=== PATIENT | female | born 1995 | race African-American/Black ===

== ENCOUNTER 2019-06-14 10:13 | Inpatient (IN) | payer OTHER ==
[2019-06-14 10:50] VITALS: BMI 18.7
--- NOTE | 2019-06-14 12:57 | HP ---
COWS - Scale Resting Pulse: 0= ME 80 or Below Sweatin= Chills/Flushing Restless Observation: 3= Extraneous Movement Pupil Size: 0= Normal to Room Light Bone or Joint Aches: 2= Severe Diffuse Aches Runny Nose/ Eye Tearin= None GI Upset > 30mins: 0= None Tremor Observation: 2= Slight Tremor Visible Yawning Observation: 2= >3x During Session Anxiety or Irritability: 1=Feels Anxious/Irritable Goose Flesh Skin: 3=Piloerection COWS Score: 14 CIWA Score Nausea/Vomitin-No Nausea/No Vomiting Muscle Tremors: 5 Anxiety: 1-Mildly Anxious Agitation: 3 Paroxysmal Sweats: No Perspiration Orientation: 3-Disoriented Date>2 days Tacttile Disturbances: 1-Very Mild Itch/Numbness Auditory Disturbances: 0-None Visual Disturbances: 0-None Headache: 0-None Present CIWA-Ar Total Score: 13 - Admission Criteria [facility]ASAS Guidelines: Admission for Medically Managed Detox: Requires at least one of the followin. CIWA greater than 12 2. Seizures within the past 24 hours 3. Delirium tremens within the past 24 hours 4. Hallucinations within the past 24 hours 5. Acute intervention needed for co occurring medical disorder 6. Acute intervention needed for co occurring psychiatric disorder 7. Severe withdrawal that cannot be handled at a lower level of care (continued vomiting, continued diarrhea, abnormal vital signs) requiring intravenous medication and/or fluids 8. Admission [facility] Chief Complaint: detox for heroin, cocaine Allergies/Adverse Reactions: Allergies Allergy/AdvReac Type Severity Reaction Status Date / Time No Known Allergies Allergy Verified 06/14/19 10:33 History of Present Illness: 24F w/ no significant pmh presenting for detox-rehab for heroin, cocaine. Heroin (IV) 10-20bags daily, x3ys. Last usage was this morning. Injects Fentanyl. Takes 2-3bags cocaine daily. Has blacked out 2-3x. Denies ODs. Takes 14pills xanax in 1week. Last usage was this morning. Denies EtOH. Smokes 1/2ppd. Has detoxed at [facility] in the past. Tried to get admitted to [facility] but did not get accepted. Expresses disinterest in outpatient methadone program. Lives with daughter's father. Exam Limitations: Intoxication - Ebola screening Have you traveled outside of the country in the last 21 days: No Have you had contact with anyone from an Ebola affected area: No Do you have a fever: No - Review of Systems Constitutional: Chills Respiratory: denies: Cough Cardiac: denies: Chest Pain, Irregular Heart Rate GI: denies: Nausea, Vomiting Musculoskeletal: reports: Back Pain Neuro: reports: Tremors. denies: Headache Patient History - Patient Surgical History Hx Section: Yes (x2) - Smoking Cessation Smoking history: Current every day smoker Have you smoked in the past 12 months: Yes Aproximately how many cigarettes per day: 10 Initiated information on smoking cessation: No - Substances abused Heroin Substance route: Injection Frequency: Daily Amount used: 2 bundle Age of first use: 15 Date of last use: 06/14/19 Alprazolam (Xanax) Substance route: Oral Frequency: Daily Amount used: 2 stcks Age of first use: 15 Date of last use: 06/14/19 Marijuana/Hashish Substance route: Smoking Frequency: Daily Amount used: 2 blunts Age of first use: 15 Date of last use: 06/14/19 Family Disease History - Family Disease History Family History: Unable to Obtain Admission Physical Exam S - Vital Signs Vital Signs: Vital Signs - 24 hr 06/14/19 10:32 Temperature 98.4 F Pulse Rate 80 Respiratory 18 Rate Blood Pressure 130/88 - Physical General Appearance: Yes: No Apparent Distress, Thin, Tremorous HEENTM: No: Scleral Ictenus R, Scleral Ictenus L Respiratory: Yes: Lungs Clear, No Respiratory Distress, No Accessory Muscle Use. No: Respiratory Distress, Accessory Muscle Use Neck: Yes: Supple, Trachea in good position Cardiology: Yes: Regular Rate, S1, S2. No: Irregularly Irregular Abdominal: Yes: Non Tender, Soft Extremities: Yes: Other (well-healed scar at dorsum of hands b/l) Integumentary: Yes: Dry, Warm, Other (piloerection) Breathalyzer - Breathalyzer Breathalyzer: 0 Urine Drug Screen - Test Device Lot number: [id number] Expiration date: 02/24/21 - Control Is test valid?: Yes - Results Drug screen NEGATIVE: Yes Urine drug screen results: THC-Marijuana, JOEY-Cocaine, FEN-Fentanyl, BZO- Benzodiazepines Inpatient Rehab Admission - Rehab Decision to Admit Inpatient rehab admission?: No
--- NOTE | 2019-06-14 13:41 | PN ---
Teaching Attending Note Name of Resident: Sascha Walter ATTENDING PHYSICIAN STATEMENT I saw and evaluated the patient. I reviewed the resident's note and discussed the case with the resident. I agree with the resident's findings and plan as documented. SUBJECTIVE: 24 yo here for heroin, bzo and cocaine detox OBJECTIVE: Vital Signs - 24 hr 06/14/19 10:32 Temperature 98.4 F Pulse Rate 80 Respiratory 18 Rate Blood Pressure 130/88 sleepy agitated ASSESSMENT AND PLAN: Admit for heroin and bzo use disorder- start methadone and valium based detox
[2019-06-14] MEDS ORDERED: MELATONIN 5 MG TABLETS PO PRN (13:50)
[2019-06-14] MEDS ORDERED: hydrOXYzine PAMOATE 25 MG CAPSULE (FP) PO PRN (13:50)
[2019-06-14] MEDS ORDERED: ACETAMINOPHEN 325 MG TABLET (FP) PO PRN ×2 (13:50)
[2019-06-14] MEDS ORDERED: MENTHOL/PHENOL 1 EACH UD MM PRN (13:50)
[2019-06-14] MEDS ORDERED: MAGNESIUM HYDROX 2400MG/30ML ORAL SUSPENSION 30 ML CUP PO PRN (13:50)
[2019-06-14] MEDS ORDERED: MAGNESIUM CITRATE 300 ML BOTTLE PO PRN (13:50)
[2019-06-14] MEDS ORDERED: NICOTINE POLACRILEX 2 MG GUM BUC PRN (13:50)
[2019-06-14] MEDS ORDERED: cloNIDine HCL 0.1 MG TABLET PO PRN (13:50)
[2019-06-14] MEDS ORDERED: diazePAM 5 MG TABLET PO PRN (13:50)
[2019-06-14] MEDS ORDERED: MAG HYDROX/AL HYDROX/SIMETH 30 ML UNIT-DOSE CUP PO PRN (13:50)
[2019-06-14] MEDS ORDERED: BISMUTH SUBSALICYLATE 524 MG/30 ML UD PO PRN (13:50)
[2019-06-14] MEDS ORDERED: METHOCARBAMOL 500 MG TABLET PO PRN (13:50)
[2019-06-14] MEDS ORDERED: IBUPROFEN 400 MG TABLET (FP) PO PRN (13:50)
[2019-06-14] MEDS ORDERED: METHADONE HCL 10 MG TABLET (FOR DETOX USE ONLY) PO ONE (16:30)
[2019-06-14 17:16] LABS: ALBUMIN 3.7 g/dl (3.4-5.0); BILIRUBIN,TOTAL 0.9 mg/dL (0.2-1); BLOOD UREA NITROGEN 6.8 mg/dL (7-18); CALCIUM 9.3 mg/dL (8.5-10.1); CREATININE 0.6 mg/dL (0.55-1.3); POTASSIUM 4.1 mmol/L (3.5-5.1); TOT PROT 7.8 g/dl (6.4-8.2)
[2019-06-14 17:26] LABS: HEMATOCRIT 38.6 % (32.4-45.2); HEMOGLOBIN 12.3 GM/dL (10.7-15.3); MCH 25.4 pg (25.7-33.7); MCHC 31.7 g/dl (32.0-36.0); MEAN CELL VOLUME 80.2 fl (80-96); MEAN PLT VOLUME 8.4 fl (7.5-11.1); PLATELET COUNT 307 K/MM3 (134-434); RBC 4.82 M/mm3 (3.60-5.2); RDW 15.6 % (11.6-15.6); WHITE BLOOD COUNT 10.5 K/mm3 (4.0-10.0)
[2019-06-14] MEDS: diazePAM 5 MG TABLET PO SCH (23:17)
[2019-06-14] MEDS: THIAMINE HCL 100 MG TABLET (FP) PO SCH (23:17)
[2019-06-15] MEDS: diazePAM 5 MG TABLET PO SCH ×4 (01:07→23:11)
[2019-06-15] MEDS ORDERED: ONDANSETRON *ODT* 4 MG TABLET SL PRN (08:51)
[2019-06-15] MEDS ORDERED: TRIMETHOBENZAMIDE HCL 200MG/2ML INJ IM PRN (09:36)
[2019-06-15] MEDS ORDERED: METHADONE (DETOX) 20 MG, METHADONE (DETOX) 5 MG PO ONE (10:00)
[2019-06-15] MEDS: PRENATAL VITAMINS W/ FOLIC ACID TABLET (FP) PO SCH (11:20)
[2019-06-15] MEDS ORDERED: METHADONE HCL 10 MG TABLET (FOR DETOX USE ONLY) ONE (11:55)
[2019-06-15] MEDS ORDERED: METHADONE HCL 5 MG TABLET (FOR DETOX USE ONLY) ONE (11:56)
--- NOTE | 2019-06-15 12:44 | PN ---
[facility] CIWA - CIWA Score Nausea/Vomitin-No Nausea/No Vomiting Muscle Tremors: 3 Anxiety: 3 Agitation: 4-Moderately Restless Paroxysmal Sweats: 3 Orientation: 0-Oriented Tacttile Disturbances: 0-None Auditory Disturbances: 0-None Visual Disturbances: 0-None Headache: 0-None Present CIWA-Ar Total Score: 13 BHS COWS - Scale Resting Pulse: 0= [place] 80 or Below Sweatin= Chills/Flushing Restless Observation: 1= Difficult to Sit Still Pupil Size: 0= Normal to Room Light Bone or Joint Aches: 2= Severe Diffuse Aches Runny Nose/ Eye Tearin= Runny Nose/Eyes GI Upset > 30mins: 2= Nausea/Diarrhea Tremor Observation of Outstretched Hands: 2= Slight Tremor Visible Yawning Observation: 2= >3x During Session Anxiety or Irritability: 2=Irritable/Anxious Goose Flesh Skin: 0=Smooth Skin COWS Score: 14 S Progress Note (SOAP) Subjective: nausea vomiting body aches sweats shakes interrupted sleep irritable Objective: 06/15/19 12:43 Vital Signs Temperature 98.1 F 06/15/19 09:11 Pulse Rate 76 06/15/19 09:11 Respiratory Rate 16 06/15/19 09:11 Blood Pressure 142/99 06/15/19 09:11 O2 Sat by Pulse Oximetry (%) Laboratory Tests 06/14/19 06/14/19 06/14/19 14:00 14:00 14:00 WBC 10.5 H RBC 4.82 Hgb 12.3 Hct 38.6 MCV 80.2 MCH 25.4 L MCHC 31.7 L RDW 15.6 Plt Count 307 MPV 8.4 Sodium 136 Potassium 4.1 Chloride 101 Carbon Dioxide 29 Anion Gap 6 L BUN 6.8 L Creatinine 0.6 Est GFR (CKD-EPI)AfAm 147.86 Est GFR (CKD-EPI)NonAf 127.58 Random Glucose 77 Calcium 9.3 Total Bilirubin 0.9 AST 37 ALT 36 Alkaline Phosphatase 109 Total Protein 7.8 Albumin 3.7 RPR Titer Nonreactive labs noted aaox3 ambulating no acute distress Assessment: 06/15/19 12:43 withdrawals sx Plan: continue detox increase fluids tigan IM prn
[2019-06-15] MEDS: THIAMINE HCL 100 MG TABLET (FP) PO SCH (23:12)
[2019-06-16] MEDS: diazePAM 5 MG TABLET PO SCH ×2 (06:58→17:39)
[2019-06-16] MEDS ORDERED: METHADONE HCL 10 MG TABLET (FOR DETOX USE ONLY) PO ONE (10:00)
[2019-06-16] MEDS: PRENATAL VITAMINS W/ FOLIC ACID TABLET (FP) PO SCH (10:34)
--- NOTE | 2019-06-16 10:55 | PN ---
S CIWA - CIWA Score Nausea/Vomitin Muscle Tremors: 2 Anxiety: 2 Agitation: 2 Paroxysmal Sweats: 1-Minimal Palms Moist Orientation: 0-Oriented Tacttile Disturbances: 0-None Auditory Disturbances: 0-None Visual Disturbances: 0-None Headache: 2-Mild CIWA-Ar Total Score: 11 BHS COWS - Scale Resting Pulse: 0= [place] 80 or Below Sweatin= No chills or Flushing Restless Observation: 1= Difficult to Sit Still Pupil Size: 1= Pupils >than Normal Bone or Joint Aches: 2= Severe Diffuse Aches Runny Nose/ Eye Tearin= Runny Nose/Eyes GI Upset > 30mins: 2= Nausea/Diarrhea Tremor Observation of Outstretched Hands: 2= Slight Tremor Visible Yawning Observation: 1= 1-2x During Session Anxiety or Irritability: 2=Irritable/Anxious Goose Flesh Skin: 0=Smooth Skin COWS Score: 13 S Progress Note (SOAP) Subjective: alert,irritable,anxious,interrupted sleep,pain in the body and back Objective: 06/16/19 10:52 Vital Signs Temperature 98.3 F 06/16/19 09:42 Pulse Rate 80 06/16/19 09:42 Respiratory Rate 18 06/16/19 09:42 Blood Pressure 151/77 06/16/19 09:42 O2 Sat by Pulse Oximetry (%) Laboratory Last Values WBC 10.5 K/mm3 (4.0-10.0) H 06/14/19 14:00 RBC 4.82 M/mm3 (3.60-5.2) 06/14/19 14:00 Hgb 12.3 GM/dL (10.7-15.3) 06/14/19 14:00 Hct 38.6 % (32.4-45.2) 06/14/19 14:00 MCV 80.2 fl (80-96) 06/14/19 14:00 MCH 25.4 pg (25.7-33.7) L 06/14/19 14:00 MCHC 31.7 g/dl (32.0-36.0) L 06/14/19 14:00 RDW 15.6 % (11.6-15.6) 06/14/19 14:00 Plt Count 307 K/MM3 (134-434) 06/14/19 14:00 MPV 8.4 fl (7.5-11.1) 06/14/19 14:00 Sodium 136 mmol/L (136-145) 06/14/19 14:00 Potassium 4.1 mmol/L (3.5-5.1) 06/14/19 14:00 Chloride 101 mmol/L (98-107) 06/14/19 14:00 Carbon Dioxide 29 mmol/L (21-32) 06/14/19 14:00 Anion Gap 6 MMOL/L (8-16) L 06/14/19 14:00 BUN 6.8 mg/dL (7-18) L 06/14/19 14:00 Creatinine 0.6 mg/dL (0.55-1.3) 06/14/19 14:00 Est GFR (CKD-EPI)AfAm 147.86 06/14/19 14:00 Est GFR (CKD-EPI)NonAf 127.58 06/14/19 14:00 Random Glucose 77 mg/dL (74-106) 06/14/19 14:00 Calcium 9.3 mg/dL (8.5-10.1) 06/14/19 14:00 Total Bilirubin 0.9 mg/dL (0.2-1) 06/14/19 14:00 AST 37 U/L (15-37) 06/14/19 14:00 ALT 36 U/L (13-61) 06/14/19 14:00 Alkaline Phosphatase 109 U/L (45-117) 06/14/19 14:00 Total Protein 7.8 g/dl (6.4-8.2) 06/14/19 14:00 Albumin 3.7 g/dl (3.4-5.0) 06/14/19 14:00 RPR Titer Nonreactive (NONREACTIVE) 06/14/19 14:00 Assessment: 06/16/19 10:53 withdrawal symptom Plan: continue detox methadone and valium regimen,wbc 10.500,probably from dehydration , encourage oral fluid,repeat cbc in am
[2019-06-16] MEDS: THIAMINE HCL 100 MG TABLET (FP) PO SCH (23:29)
[2019-06-17] MEDS ORDERED: diazePAM 5 MG TABLET PO ONE (06:00)
[2019-06-17] MEDS ORDERED: METHADONE HCL 10 MG TABLET (FOR DETOX USE ONLY) ONE (09:23)
[2019-06-17] MEDS ORDERED: METHADONE HCL 5 MG TABLET (FOR DETOX USE ONLY) ONE (09:24)
[2019-06-17 09:50] VITALS: BP 123/78; PULSE 94; TEMP 99.3
[2019-06-17] MEDS ORDERED: METHADONE (DETOX) 10 MG, METHADONE (DETOX) 5 MG PO ONE (10:00)
[2019-06-17] MEDS: PRENATAL VITAMINS W/ FOLIC ACID TABLET (FP) PO SCH (10:27)
[2019-06-17 11:24] LABS: HEMATOCRIT 39.6 % (32.4-45.2); HEMOGLOBIN 12.8 GM/dL (10.7-15.3); MCH 25.5 pg (25.7-33.7); MCHC 32.4 g/dl (32.0-36.0); MEAN CELL VOLUME 78.8 fl (80-96); MEAN PLT VOLUME 8.2 fl (7.5-11.1); PLATELET COUNT 367 K/MM3 (134-434); RBC 5.02 M/mm3 (3.60-5.2); WHITE BLOOD COUNT 11.7 K/mm3 (4.0-10.0)
--- NOTE | 2019-06-17 12:55 | DS ---
[facility] Detox Discharge Summary Admission Date: 06/14/19 Discharge Date: 06/17/19 (Left AMA) - History Present History: Cannabis Dependence, Opioid Dependence, Sedative Dependence Additional Comments: Pt left AMA, did not complete her detox protocol. Pt states, "i have to leave now". An attempt to let pt stay and complete her detox protocol failed. Pt is encouraged to follow-up with outpatient CD program and also to follow-up with her PMD. Pt verbalized understanding. Pt is alert and oriented x3 and in no respiratory distress. Pertinent Past History: H/O heroin, benzo,and cannabis use disorder. - Physical Exam Results Vital Signs: Vital Signs Temperature 99.3 F 06/17/19 09:49 Pulse Rate 94 H 06/17/19 09:49 Respiratory Rate 18 06/17/19 09:49 Blood Pressure 123/78 06/17/19 09:49 O2 Sat by Pulse Oximetry (%) Vital Signs 06/17/19 06/17/19 06:00 09:49 Temperature 98.8 F 99.3 F Pulse Rate 77 94 H Respiratory 16 18 Rate Blood Pressure 142/89 123/78 Lab Results WBC 11.7 K/mm3 (4.0-10.0) H 06/17/19 08:00 RBC 5.02 M/mm3 (3.60-5.2) 06/17/19 08:00 Hgb 12.8 GM/dL (10.7-15.3) 06/17/19 08:00 Hct 39.6 % (32.4-45.2) 06/17/19 08:00 MCV 78.8 fl (80-96) L 06/17/19 08:00 MCHC 32.4 g/dl (32.0-36.0) 06/17/19 08:00 RDW 15.0 % (11.6-15.6) 06/17/19 08:00 Plt Count 367 K/MM3 (134-434) 06/17/19 08:00 Sodium 136 mmol/L (136-145) 06/14/19 14:00 Potassium 4.1 mmol/L (3.5-5.1) 06/14/19 14:00 Chloride 101 mmol/L (98-107) 06/14/19 14:00 Carbon Dioxide 29 mmol/L (21-32) 06/14/19 14:00 Anion Gap 6 MMOL/L (8-16) L 06/14/19 14:00 BUN 6.8 mg/dL (7-18) L 06/14/19 14:00 Creatinine 0.6 mg/dL (0.55-1.3) 06/14/19 14:00 Random Glucose 77 mg/dL (74-106) 06/14/19 14:00 Calcium 9.3 mg/dL (8.5-10.1) 06/14/19 14:00 Labs noted. Pertinent Admission Physical Exam Findings: withdrawal symptoms. - Treatment Hospital Course: Detox Protocol Followed - Medication Discharge Medications: Ambulatory Orders NK [No Known Home Medication] 06/14/19 - Diagnosis (1) Heroin use disorder, mild, abuse Current Visit: Yes Status: Chronic (2) Benzodiazepine abuse Current Visit: Yes Status: Chronic - AMA Did Patient Leave Against Medical Advice: Yes S COWS - Scale Resting Pulse: 1= [place] 81-100 Sweatin= Chills/Flushing Restless Observation: 1= Difficult to Sit Still Pupil Size: 0= Normal to Room Light Bone or Joint Aches: 2= Severe Diffuse Aches Runny Nose/ Eye Tearin= None GI Upset > 30mins: 1= Stomach Cramp Tremor Observation of Outstretched Hands: 2= Slight Tremor Visible Yawning Observation: 1= 1-2x During Session Anxiety or Irritability: 1=Feels Anxious/Irritable Goose Flesh Skin: 0=Smooth Skin COWS Score: 10 [facility] CIWA - CIWA Score Nausea/Vomitin Muscle Tremors: 2 Anxiety: 3 Agitation: 0-Normal Activity Paroxysmal Sweats: 3 Orientation: 0-Oriented Tacttile Disturbances: 0-None Auditory Disturbances: 0-None Visual Disturbances: 0-None Headache: 1-Very Mild CIWA-Ar Total Score: 11
[2019-06-18] MEDS ORDERED: METHADONE HCL 10 MG TABLET (FOR DETOX USE ONLY) PO ONE (10:00)
[2019-06-19] MEDS ORDERED: METHADONE HCL 5 MG TABLET (FOR DETOX USE ONLY) PO ONE (06:00)
== END 2019-06-17 12:33 | disposition left against medical advice (07) | DRG 770 ==
LOC: YASAS 10:13 → Y6N 15:32
PROVIDERS: ADMIT Surgery; ATTEND Surgery
PROC: HZ2ZZZZ Detoxification Services for Substance Abuse Treatment (ICD-10-PCS; principal; 2019-06-14)
DX: F11.23 Opioid dependence with withdrawal (principal); F13.230 Sedative, hypnotic or anxiolytic dependence with withdrawal, uncomplicated; F12.20 Cannabis dependence, uncomplicated; F17.210 Nicotine dependence, cigarettes, uncomplicated
CPT/HCPCS: 36415; 80053; 81025; 85027; 86593; Q0162